=== PATIENT | male | born 1950 | race Caucasian/White ===

== ENCOUNTER 2017-03-26 21:17 | Inpatient (IN) | payer MEDICARE, OTHER ==
[~2017-03-26] VITALS: Ht 172.7 cm; Wt 51.8 kg
[2017-03-26 22:00] VITALS: BP 133/87; PULSE 115; RESP 16; TEMP 98.6; O2SAT 99
--- NOTE | 2017-03-26 22:43 | PD ---
HPI Chief Complaint: Psychiatric Symptoms Time Seen by Provider: 22:31 Travel History International Travel<30 days: No Contact w/Intl Traveler<30days: No Traveled to known affect area: No History of Present Illness HPI 66-year-old male is brought to the emergency department under [place] act for psychiatric evaluation. Per report, patient's neighbor called the police when he would not hit off of the floor. Patient states that he drinks 5 beers a day. He states he laid on the floor because he wanted to. He does not know how long he was there. He denies falling. Denies any focal deficits or weakness. Per report, patient was found in a house kept in very poor condition. He states he has not made for an entire week but states he has access to water and a bathtub in his own home. Denies suicidal homicidal ideations. Denies any psychiatric history. No other symptoms to report. PFSH Past Medical History Medical History: Denies Significant Hx Social History Alcohol Use: Yes Tobacco Use: Yes Substance Use: No Allergies-Medications (Allergen,Severity, Reaction): Coded Allergies: No Known Allergies (Unverified , 03/26/17) Reported Meds & Prescriptions Reported Meds & Active Scripts Active Active Prescriptions or Reported Medications Unobtainable Review of Systems ROS Limitations: Intoxication Except as stated in HPI: all other systems reviewed are Neg Physical Exam Exam Limitations: Intoxication Narrative GENERAL: Thin unkempt male patient, in no acute distress. SKIN: Focused skin assessment warm/dry. HEAD: Atraumatic. Normocephalic. EYES: Pupils equal and round. No scleral icterus. Scleral injection without drainage. ENT: No nasal bleeding or discharge. Mucous membranes pink and moist. NECK: Trachea midline. No JVD. CARDIOVASCULAR: Tachycardic rate and rhythm. No murmur appreciated. RESPIRATORY: No accessory muscle use. Coarse, diminished to auscultation. Breath sounds equal bilaterally. GASTROINTESTINAL: Abdomen soft, non-tender, nondistended. Hepatic and splenic margins not palpable. MUSCULOSKELETAL: No obvious deformities. No clubbing. No cyanosis. No edema. Pt has layers of dirt on his lower extremities and blackened toenails from it. NEUROLOGICAL: Awake and alert. No obvious cranial nerve deficits. Moves all extremities; clear speech Data Data Last Documented VS Vital Signs Date Time Temp Pulse Resp B/P (MAP) Pulse Ox O2 Delivery O2 Flow Rate FiO2 9/17/17 22:00 98.6 115 16 133/87 (102) 99 Orders Orders Complete Blood Count With Diff (03/26/17 22:31) Basic Metabolic Panel (Bmp) (03/26/17 22:31) Urinalysis - C+S If Indicated (03/26/17 22:31) Psych Screen (03/26/17 22:31) Drug Screen, Random Urine (03/26/17 22:31) Alcohol (Ethanol) (03/26/17 22:31) Iv Access Insert/Monitor (03/26/17 22:49) Sodium Chlor 0.9% 1000 Ml Inj (Ns 1000 M (03/26/17 23:00) Diet Regular Basic (03/27/17 Breakfast) Alcohol Withdrawal Asmt-Ciwa ONCE (03/26/17 22:49) Ondansetron Inj (Zofran Inj) (03/26/17 23:00) Albuterol Neb (Albuterol Neb) (03/26/17 23:00) Flumazenil Inj (Romazicon Inj) (03/26/17 23:00) Lorazepam (Ativan) (03/26/17 23:00) Lorazepam Inj (Ativan Inj) (03/26/17 23:00) Lorazepam (Ativan) (03/26/17 23:00) Lorazepam Inj (Ativan Inj) (03/26/17 23:00) Lorazepam Inj (Ativan Inj) (03/26/17 23:00) Lorazepam Inj (Ativan Inj) (03/26/17 23:00) Creatine Kinase (Cpk) (03/26/17 22:31) CKMB (03/26/17 22:50) CKMB% (03/26/17 22:50) Sodium Chlor 0.9% 1000 Ml Inj (Ns 1000 M (03/27/17 00:00) Labs Laboratory Tests Test 03/26/17 22:50 White Blood Count 10.4 TH/MM3 Red Blood Count 4.23 MIL/MM3 Hemoglobin 13.9 GM/DL Hematocrit 40.2 % Mean Corpuscular Volume 95.1 FL Mean Corpuscular Hemoglobin 32.9 PG Mean Corpuscular Hemoglobin Concent 34.6 % Red Cell Distribution Width 13.8 % Platelet Count 166 TH/MM3 Mean Platelet Volume 8.2 FL Neutrophils (%) (Auto) 87.0 % Lymphocytes (%) (Auto) 4.8 % Monocytes (%) (Auto) 7.8 % Eosinophils (%) (Auto) 0.0 % Basophils (%) (Auto) 0.4 % Neutrophils # (Auto) 9.1 TH/MM3 Lymphocytes # (Auto) 0.5 TH/MM3 Monocytes # (Auto) 0.8 TH/MM3 Eosinophils # (Auto) 0.0 TH/MM3 Basophils # (Auto) 0.0 TH/MM3 CBC Comment DIFF FINAL Differential Comment Blood Urea Nitrogen 4 MG/DL Creatinine 0.74 MG/DL Random Glucose 123 MG/DL Calcium Level 7.9 MG/DL Sodium Level 122 MEQ/L Potassium Level 3.6 MEQ/L Chloride Level 82 MEQ/L Carbon Dioxide Level 28.3 MEQ/L Anion Gap 12 MEQ/L Estimat Glomerular Filtration Rate 106 ML/MIN Total Creatine Kinase 864 U/L Creatine Kinase MB 11.9 NG/ML Creatine Kinase MB % 1.4 % Ethyl Alcohol Level 302 MG/DL [facility] Medical Decision Making Medical Screen Exam Complete: Yes Emergency Medical Condition: Yes Medical Record Reviewed: Yes Differential Diagnosis Mood disorder versus personality disorder versus substance abuse versus intoxication versus electrolyte abnormality versus dehydration Narrative Course 66-year-old male presents to the emergency department under a [place] act for psychiatric evaluation. Patient is clinically intoxicated. He is covered in dirt and poorly kempt. Does report daily alcohol use. Denies suicidal or homicidal ideations. Workup was initiated for medical clearance.[facility] protocol is placed. Laboratory Tests Test 03/26/17 22:50 White Blood Count 10.4 TH/MM3 Red Blood Count 4.23 MIL/MM3 Hemoglobin 13.9 GM/DL Hematocrit 40.2 % Mean Corpuscular Volume 95.1 FL Mean Corpuscular Hemoglobin 32.9 PG Mean Corpuscular Hemoglobin Concent 34.6 % Red Cell Distribution Width 13.8 % Platelet Count 166 TH/MM3 Mean Platelet Volume 8.2 FL Neutrophils (%) (Auto) 87.0 % Lymphocytes (%) (Auto) 4.8 % Monocytes (%) (Auto) 7.8 % Eosinophils (%) (Auto) 0.0 % Basophils (%) (Auto) 0.4 % Neutrophils # (Auto) 9.1 TH/MM3 Lymphocytes # (Auto) 0.5 TH/MM3 Monocytes # (Auto) 0.8 TH/MM3 Eosinophils # (Auto) 0.0 TH/MM3 Basophils # (Auto) 0.0 TH/MM3 CBC Comment DIFF FINAL Differential Comment Blood Urea Nitrogen 4 MG/DL Creatinine 0.74 MG/DL Random Glucose 123 MG/DL Calcium Level 7.9 MG/DL Sodium Level 122 MEQ/L Potassium Level 3.6 MEQ/L Chloride Level 82 MEQ/L Carbon Dioxide Level 28.3 MEQ/L Anion Gap 12 MEQ/L Estimat Glomerular Filtration Rate 106 ML/MIN Total Creatine Kinase 864 U/L Creatine Kinase MB 11.9 NG/ML Creatine Kinase MB % 1.4 % Ethyl Alcohol Level 302 MG/DL Results are reviewed and discussed with my attending physician. Call has been placed to [facility] for admission due to hyponatremia. Patient remains under a Sotelo act at this time. Diagnosis Primary Impression: Hyponatremia Additional Impression: Alcohol intoxication Qualified Codes: F10.929 - Alcohol use, unspecified with intoxication, unspecified Admitting Information Admitting Physician Requests: Admit Scripts Unable to Obtain Active Prescriptions or Reported Meds Condition: Stable Bianca Mohr Mar 26, 2017 22:43
[2017-03-26] MEDS ORDERED: ONDANSETRON HCL 4 MG/2 ML VIAL IV PUSH PRN (23:00)
[2017-03-26] MEDS ORDERED: LORazepam 1 MG TAB PO PRN (23:00)
[2017-03-26] MEDS ORDERED: SODIUM CHLOR 0.9% 1000 ML INJ 1,000 ML IV ONE (23:00)
[2017-03-26] MEDS ORDERED: LORazepam 2 MG/ML VIAL IV PUSH PRN ×2 (23:00)
[2017-03-26] MEDS ORDERED: RESP: ALBUTEROL 2.5 MG/3 ML NEB (PRN) NEB (23:00)
[2017-03-26] MEDS ORDERED: LORazepam 2 MG TAB PO PRN (23:00)
[2017-03-26] MEDS ORDERED: FLUMAZENIL 0.5 MG/5 ML VIAL IV PUSH PRN (23:00)
[2017-03-26] MEDS: LORazepam 2 MG/ML VIAL IV PUSH PRN (23:07)
[2017-03-26 23:30] LABS: AUTOMATED NEUTROPHIL # 9.1 TH/MM3 (1.8-7.7); BASOPHIL % 0.4 % (0.0-2.0); HEMATOCRIT 40.2 % (39.0-51.0); HEMO FLAGS DIFF FINAL; LYMPH % 4.8 % (9.0-44.0); LYMPHOCYTE # 0.5 TH/MM3 (1.0-4.8); MEAN CELL VOLUME 95.1 FL (80.0-100.0); MEAN CORPUSCULAR HEMOGLOBIN 32.9 PG (27.0-34.0); MEAN CORPUSCULAR HGB CONC 34.6 % (32.0-36.0); MONO % 7.8 % (0.0-8.0); PLATELET COUNT 166 TH/MM3 (150-450); RED BLOOD COUNT 4.23 MIL/MM3 (4.50-5.90); RED CELL DISTRIBUTION WIDTH 13.8 % (11.6-17.2); WHITE BLOOD COUNT 10.4 TH/MM3 (4.0-11.0)
[2017-03-26 23:44] LABS: BICARBONATE 28.3 MEQ/L (21.0-32.0); POTASSIUM 3.6 MEQ/L (3.5-5.1)
[2017-03-27] VITALS (8 sets, daily range): BP systolic 121–166; BP diastolic 73–89; PULSE 89–113; RESP 16–27; TEMP 98.1–99.3; O2SAT 93–100
[2017-03-27] MEDS ORDERED: SODIUM CHLOR 0.9% 1000 ML INJ 1,000 ML IV ONE
[2017-03-27 00:06] LABS: CKMB 11.9 NG/ML (0.5-3.6)
[2017-03-27] MEDS: LORazepam 2 MG/ML VIAL IV PUSH PRN (01:14)
[2017-03-27] MEDS ORDERED: ONDANSETRON HCL 4 MG/2 ML VIAL IVP PRN (01:15)
[2017-03-27] MEDS ORDERED: SODIUM CHLORIDE 0.9% FLUSH 10 ML FLUSH IV FLUSH PRN (01:15)
[2017-03-27] MEDS ORDERED: BISACODYL 10 MG SUPP RECTAL PRN (01:15)
[2017-03-27] MEDS ORDERED: LACTULOSE SYRUP 20 GM/30 ML CUP PO PRN (01:15)
[2017-03-27] MEDS ORDERED: SENNOSIDES 8.6 MG TAB PO PRN (01:15)
[2017-03-27] MEDS ORDERED: ACETAMINOPHEN 325 MG TAB PO PRN (01:15)
[2017-03-27] MEDS ORDERED: MAGNESIUM HYDROXIDE SUSP 30 ML CUP PO PRN (01:15)
[2017-03-27 01:26] LABS: BACTERIA, URINE RARE /hpf; BLOOD, URINE TRACE (NEG); COMMENT (UR) CULT NOT INDICATED; CULTURE IF INDICATED CULT NOT INDICATED; GLUCOSE,URINE NEG (NEG); KETONE, URINE NEG (NEG); NITRITE,URINE NEG (NEG); PH, URINE 5.5 (5.0-8.5); URINE COLOR LIGHT-YELLOW (YELLW/STRAW)
[2017-03-27] MEDS: SODIUM CHLOR 0.9% 1000 ML INJ 1,000 ML IV SCH ×3 (01:50→22:58)
--- NOTE | 2017-03-27 02:49 | HHI.HP ---
[facility] [place] No Primary Care Physician Admission Diagnosis HYPONATREMIA; INTOXICATION; ALCOHOL DEPENDENCE; Diagnoses: (1) Alcohol abuse Diagnosis: Principal (2) Hyponatremia Diagnosis: Principal (3) Rhabdomyolysis Diagnosis: Principal (4) Total self-care deficit Diagnosis: Principal (5) Tobacco abuse Diagnosis: Principal Travel History International Travel<30 Days: No Contact w/Intl Traveler <30 Da: No Traveled to Known Affected Are: No History of Present Illness This is a 66-year-old male with a PMH of Alcohol Abuse and Tobacco Abuse was brought to the ER by [place] [facility] under [employer] Act as patient unable to care for self. Per report, patient's neighbor called Police after finding him lying on the floor, refused to get up. Per PD, patient covered in urine and feces, refusing care at which time he was placed under [employer] Act. Denies suicidal ideation. On arrival, BP 133/87, HR 1:15, O2 sat 99% on RA, Afebrile. CBC essentially unremarkable. Na 122. CPK 864. UA negative. Urine Drug Screen negative. Alcohol 302. Pt to be admitted pending medical clearance for Psych. Review of Systems Except as stated in HPI: all other systems reviewed are Neg ROS: 14 point review of systems otherwise negative. Past Family Social History Past Medical History PMH: Alcohol Abuse and Tobacco Abuse Past Surgical History PAST SURGICAL HISTORY: Right Finger Surgery Allergies: Coded Allergies: No Known Allergies (Unverified , 03/26/17) Family History PAST FAMILY HISTORY: Reviewed. No h/o DM or CAD Social History PAST SOCIAL HISTORY: Positive for alcohol abuse. Positive for tobacco. Negative for drugs. Physical Exam Vital Signs Vital Signs Date Time Temp Pulse Resp B/P (MAP) Pulse Ox O2 Delivery O2 Flow Rate FiO2 03/27/17 01:14 90 18 129/89 (102) 95 Room Air 03/26/17 22:00 98.6 115 16 133/87 (102) 99 Physical Exam PE: GENERAL: Middle-aged male in no acute distress. Disheveled, acutely intoxicated HEENT: PERRLA, EOMI. No scleral icterus or conjunctival pallor. No lid lag or facial droop. CARDIOVASCULAR: Regular rate and rhythm. No obvious murmurs to auscultation. No chest tenderness to palpation. RESPIRATORY: No obvious rhonchi or wheezing. Clear to auscultation. Breath sounds equal bilaterally. GASTROINTESTINAL: Abdomen soft, non-tender, nondistended. BS normal. MUSCULOSKELETAL: Extremities without clubbing, cyanosis, or edema. No obvious deformities. NEUROLOGICAL: Awake, alert and oriented x4. No focal neurologic deficits. Moving both upper and lower extremities spontaneously. Laboratory Laboratory Tests Test 03/26/17 22:50 03/27/17 01:05 White Blood Count 10.4 Red Blood Count 4.23 Hemoglobin 13.9 Hematocrit 40.2 Mean Corpuscular Volume 95.1 Mean Corpuscular Hemoglobin 32.9 Mean Corpuscular Hemoglobin Concent 34.6 Red Cell Distribution Width 13.8 Platelet Count 166 Mean Platelet Volume 8.2 Neutrophils (%) (Auto) 87.0 Lymphocytes (%) (Auto) 4.8 Monocytes (%) (Auto) 7.8 Eosinophils (%) (Auto) 0.0 Basophils (%) (Auto) 0.4 Neutrophils # (Auto) 9.1 Lymphocytes # (Auto) 0.5 Monocytes # (Auto) 0.8 Eosinophils # (Auto) 0.0 Basophils # (Auto) 0.0 CBC Comment DIFF FINAL Differential Comment Blood Urea Nitrogen 4 Creatinine 0.74 Random Glucose 123 Calcium Level 7.9 Sodium Level 122 Potassium Level 3.6 Chloride Level 82 Carbon Dioxide Level 28.3 Anion Gap 12 Estimat Glomerular Filtration Rate 106 Total Creatine Kinase 864 Creatine Kinase MB 11.9 Creatine Kinase MB % 1.4 Ethyl Alcohol Level 302 Urine Color LIGHT-YELLOW Urine Turbidity CLEAR Urine pH 5.5 Urine Specific Reader 1.003 Urine Protein NEG Urine Glucose (UA) NEG Urine Ketones NEG Urine Occult Blood TRACE Urine Nitrite NEG Urine Bilirubin NEG Urine Urobilinogen LESS THAN 2.0 Urine Leukocyte Esterase NEG Urine RBC LESS THAN 1 Urine WBC 1 Urine Bacteria RARE Microscopic Urinalysis Comment CULT NOT INDICATED Urine Opiates Screen NEG Urine Barbiturates Screen NEG Urine Amphetamines Screen NEG Urine Benzodiazepines Screen NEG Urine Cocaine Screen NEG Urine Cannabinoids Screen NEG Result Diagram: 03/26/17224903/26/172249 Caprini VTE Risk Assessment Caprini VTE Risk Assessment: No/Low Risk (score <= 1) Caprini Risk Assessment Model Point Value = 1 Point Value = 2 Point Value = 3 Point Value = 5 Age 41-60 Minor surgery BMI > 25 kg/m2 Swollen legs Varicose veins or History of unexplained or recurrent spontaneous Oral contraceptives or hormone replacement Sepsis (< 1 month) Serious lung disease, including pneumonia (< 1 month) Abnormal pulmonary function Acute myocardial infarction Congestive heart failure (< 1 month) History of inflammatory bowel disease Medical patient at bed rest Age 61-74 Arthroscopic surgery Major open surgery (> 45 min) Laparoscopic surgery (> 45 min) Malignancy Confined to bed (> 72 hours) Immobilizing plaster cast Central venous access Age >= 75 History of VTE Family history of VTE Factor V Leiden Prothrombin [id number] Lupus anticoagulant Anticardiolipin antibodies Elevated serum homocysteine Heparin-induced thrombocytopenia Other congenital or acquired thrombophilia Stroke (< 1 month) Elective arthroplasty Hip, pelvis, or leg fracture Acute spinal cord injury (< 1 month) Prophylaxis Regimen Total Risk Factor Score Risk Level Prophylaxis Regimen 0-1 Low Early ambulation 2 Moderate Order ONE of the following: *Sequential Compression Device (SCD) *Heparin 5000 units SQ BID 3-4 Higher Order ONE of the following medications: *Heparin 5000 units SQ TID *Enoxaparin/Lovenox 40 mg SQ daily (WT < 150 kg, CrCl > 30 mL/min) *Enoxaparin/Lovenox 30 mg SQ daily (WT < 150 kg, CrCl > 10-29 mL/min) *Enoxaparin/Lovenox 30 mg SQ BID (WT < 150 kg, CrCl > 30 mL/min) AND/OR *Sequential Compression Device (SCD) 5 or more Highest Order ONE of the following medications: *Heparin 5000 units SQ TID (Preferred with Epidurals) *Enoxaparin/Lovenox 40 mg SQ daily (WT < 150 kg, CrCl > 30 mL/min) *Enoxaparin/Lovenox 30 mg SQ daily (WT < 150 kg, CrCl > 10-29 mL/min) *Enoxaparin/Lovenox 30 mg SQ BID (WT < 150 kg, CrCl > 30 mL/min) AND *Sequential Compression Device (SCD) Assessment and Plan Problem List: (1) Alcohol abuse ICD Code: F10.10 - Alcohol abuse, uncomplicated (2) Hyponatremia ICD Code: E87.1 - Hypo-osmolality and hyponatremia Status: Acute (3) Rhabdomyolysis ICD Code: M62.82 - Rhabdomyolysis (4) Total self-care deficit ICD Code: R41.89 - Other symptoms and signs involving cognitive functions and awareness (5) Tobacco abuse ICD Code: Z72.0 - Tobacco use Assessment and Plan A/P: 1. Alcohol Abuse: w/ Acute Alcohol Intoxication. Alcohol 302. CIWA, Seizure Precautions, MVT/Thiamine/Folate replacement. 2. Hyponatremia: Na 122, likely combination of chronic toxicity from alcohol abuse and acute dehydration. IVF for hydration, repeat labs in am. 3. Rhabdomyolysis: CPK 864. Check serial CPK for trend, IVF for hydration. U /a negative. 4. Total Self Care Deficit: Brought in by [place] [facility] under [place] Act as unable to care for self, refusing medical treatment. Consult Psych for further eval. 5. Tobacco Abuse: Ativan/NicoDerm prn if needed. 6. Social work for d/c planning as needed. 7. DVT Prophylaxis: SCD/Teds 8. Case discussed w/ ER physician at length. Physician Certification 2 Midnight Certification Type: Admission for Inpatient Services Order for Inpatient Services The services are ordered in accordance with Medicare regulations or non- Medicare payer requirements, as applicable. In the case of services not specified as inpatient-only, they are appropriately provided as inpatient services in accordance with the 2-midnight benchmark. Estimated LOS (days): 2 days is the estimated time the patient will need to remain in the hospital, assuming treatment plan goals are met and no additional complications. Post-Hospital Plan: Not yet determined Rachel Tejada MD Mar 27, 2017 02:49
[2017-03-27] MEDS: SODIUM CHLORIDE 0.9% FLUSH 10 ML FLUSH IV FLUSH SCH ×2 (09:00→21:00)
[2017-03-27] MEDS: MULTIVITAMINS/MINERALS THERAPEUTIC TAB PO SCH (09:29)
[2017-03-27] MEDS: DOCUSATE SODIUM 50 MG/SENNA 8.6 MG TAB PO SCH ×2 (09:29→21:00)
[2017-03-27] MEDS: THIAMINE HCL 100 MG TAB PO SCH (09:29)
[2017-03-27] MEDS: FOLIC ACID 1 MG TAB PO SCH (09:32)
[2017-03-27 11:24] LABS: CKMB 9.2 NG/ML (0.5-3.6)
--- NOTE | 2017-03-27 13:14 | HHI.PR ---
Subjective Remarks Fourth hyponatremia and alcoholism Patient is AAO 4. He has no complaint. He stated that he sleepy. Dealt with patient's nurse at the bedside she also has no complaints. Patient does admit to drinking a lot of alcohol. He would not quantify to me. Objective Vitals Vital Signs Date Time Temp Pulse Resp B/P (MAP) Pulse Ox O2 Delivery O2 Flow Rate FiO2 03/27/17 08:00 98 03/27/17 07:50 98 18 126/78 (94) 100 03/27/17 07:35 03/27/17 07:30 108 03/27/17 07:30 98.1 108 27 166/82 (110) 93 03/27/17 06:26 89 16 121/83 (96) 95 Room Air 03/27/17 01:14 90 18 129/89 (102) 95 Room Air 03/26/17 22:00 98.6 115 16 133/87 (102) 99 I/O 03/26/17 03/26/17 03/26/17 03/27/17 03/27/17 03/27/17 07:00 15:00 23:00 07:00 15:00 23:00 Intake Total 1000 ml Output Total 400 ml Balance 1000 ml -400 ml Intake IV Total 1000 ml Output Urine Total 400 ml # Voids 1 Result Diagram: 03/26/17224903/26/172249 Objective Remarks GENERAL: Disheveled man in no acute distress NECK: Supple, trachea midline. No JVD or lymphadenopathy. CARDIOVASCULAR: Regular rate and rhythm without murmurs, gallops, or rubs. RESPIRATORY: Breath sounds equal bilaterally. No accessory muscle use. GASTROINTESTINAL: Abdomen soft, non-tender, nondistended. NEURO: AAO X 3. CN 2-12 intact. Sensation and motor grossly intact. Medications and IVs Current Medications Sodium Chloride 1,000 ml @ 999 mls/hr BOLUS ONCE IV Last administered on 03/26t 23:00; Start 03/26/17 at 23:00; Stop 03/27/17 at 00:00; Status DC Ondansetron HCl (Zofran Inj) 4 mg Q8H PRN IV PUSH NAUSEA OR VOMITING; Start at 23:00 Albuterol Sulfate (Albuterol Neb) 2.5 mg Q4HR NEB PRN NEB SOB/WHEEZING; Start 03/26/17 at 23:00 Flumazenil (Romazicon Inj) 0.2 mg Q1M PRN IV PUSH SEE LABEL COMMENTS; Start at 23:00 Lorazepam (Ativan) 1 mg Q4H PRN PO CIWA 8 - 10; Start 03/26/17 at 23:00 Lorazepam (Ativan Inj) 1 mg Q4H PRN IV PUSH CIWA 8 - 10; Start 03/26/17 at 23: 00 Lorazepam (Ativan) 2 mg Q2H PRN PO CIWA 11-14; Start 03/26/17 at 23:00 Lorazepam (Ativan Inj) 2 mg Q2H PRN IV PUSH CIWA 11-14 Last administered on 01:14; Start 03/26/17 at 23:00 Lorazepam (Ativan Inj) 2 mg Q1H PRN IV PUSH CIWA 15-20; Start 03/26/17 at 23:00 Lorazepam (Ativan Inj) 2 mg Q15M PRN IV PUSH CIWA > 20; Start 03/26/17 at 23:00 Sodium Chloride 1,000 ml @ 999 mls/hr BOLUS ONCE IV Last administered on 03/27 00:31; Start 03/27/17 at 00:00; Stop 03/27/17 at 01:00; Status DC Folic Acid (Folate) 1 mg DAILY PO Last administered on 03/27/17 09:32; Start 03/27/17 at 09:00; Stop 04/01/17 at 08:59 Thiamine HCl (Vitamin B1) 100 mg DAILY PO Last administered on 03/27/17 09:29 ; Start 03/27/17 at 09:00 Multivitamins/ Minerals Therapeutic (Theragran M Tab) 1 tab DAILY PO Last administered on 03/27/17 09:29; Start 03/27/17 at 09:00; Stop 04/01/17 at 08:59 Sodium Chloride 1,000 ml @ 100 mls/hr Q10H IV Last administered on 03/27/17 01:50; Start 03/27/17 at 01:09 Sodium Chloride (NS Flush) 2 ml UNSCH PRN IV FLUSH FLUSH AFTER USING IV ACCESS ; Start 03/27/17 at 01:15 Sodium Chloride (NS Flush) 2 ml BID IV FLUSH ; Start 03/27/17 at 09:00 Ondansetron HCl (Zofran Inj) 4 mg Q6H PRN IVP NAUSEA OR VOMITING; Start at 01:15 Acetaminophen (Tylenol) 650 mg Q6H PRN PO FEVER/PAIN SCALE 1 TO 2; Start at 01:15 Senna/Docusate Sodium (Helen-Colace) 1 tab BID PO Last administered on t 09:29; Start 03/27/17 at 09:00 Magnesium Hydroxide (Milk Of Magnesia Liq) 30 ml Q12H PRN PO MILD - MODERATE CONSTIPATION; Start 03/27/17 at 01:15 Sennosides (Senokot) 17.2 mg Q12H PRN PO MODERATE - SEVERE CONSTIPATION; Start 03/27/17 at 01:15 Bisacodyl (Dulcolax Supp) 10 mg DAILY PRN RECTAL SEVERE CONSITIPATION; Start at 01:15 Lactulose (Lactulose Liq) 30 ml DAILY PRN PO SEVERE CONSITIPATION; Start at 01:15 A/P Problem List: (1) Alcohol abuse ICD Code: F10.10 - Alcohol abuse, uncomplicated (2) Hyponatremia ICD Code: E87.1 - Hypo-osmolality and hyponatremia Status: Acute (3) Rhabdomyolysis ICD Code: M62.82 - Rhabdomyolysis (4) Total self-care deficit ICD Code: R41.89 - Other symptoms and signs involving cognitive functions and awareness (5) Tobacco abuse ICD Code: Z72.0 - Tobacco use Assessment and Plan 66-year-old male who presented with alcohol intoxication Acute Alcohol Intoxication. - Alcohol 302. CIWA, Seizure Precautions, MVT/Thiamine/Folate replacement. -Back to baseline no signs of alcohol withdrawal. Hyponatremia: Na 122, -likely combination of chronic toxicity from alcohol abuse and acute dehydration. -Will need to repeat sodium level. Continue with IV fluids depending on sodium level. Rhabdomyolysis: -Most likely secondary to long sedation or trauma due to alcoholism. - CPK 864. Check serial CPK for trend, IVF for hydration. U/a negative. [place] act -Psych consulted. -Patient is alcoholic last why he does not take care of himself well. Need to treat underlying cause which is alcoholism. Tobacco Abuse: Ativan/NicoDerm prn if needed. DVT Prophylaxis: SCD/Teds Yocasta Snider MD Mar 27, 2017 13:13
--- NOTE | 2017-03-27 13:40 | PD.PSY.CON ---
Provisional Diagnosis Admission Date Mar 27, 2017 at 01:12 [place] I. Alcohol intoxication, alcohol induced mood disorder, alcohol use disorder [place] II. Deferred [place] III. He denies medical history [place] IV. Poor social and family support [place] V. 54 History of Present Illness Service Psychiatry Consult Requested By Reason for Consult Self-neglect behavior Primary Care Physician No Primary Care Physician HPI The patient is a 66-year-old man, domiciled alone in [place], single , supported by Social Security, without no previous psychiatric history, no previous suicidal attempts, no previous psychiatric hospitalizations, history of Alcohol Abuse and Tobacco Abuse, no significant medical history, who was brought to the ER by [facility] under Sotelo Act as patient unable to care for self. Per report, patient's neighbor called Police after finding him lying on the floor, refused to get up. Per PD, patient covered in urine and feces, refusing care at which time he was placed under Sotelo Act. Denies suicidal ideation. On arrival, BP 133/87, HR 1:15, O2 sat 99% on RA, Afebrile. CBC essentially unremarkable. Na 122. CPK 864. UA negative. Urine Drug Screen negative. Alcohol 302. Consulted to psychiatry for clearance. On psychiatric evaluation today patient is found calm, cooperative and pleasant. Patient explains that he doesn't really understand what is the reason he is in the hospital, he says that he should be his house. Patient says that he has been drinking 6-10 beers every day for many years and he feels happy about it. He does not remember the last time that he was sober. He denies history of withdrawal, DTs, rehabs and detoxes. Patient described his mood as very good, "could be better if I were not here", he denies depressive symptoms, he denies anxiety, he denies dann and psychosis. He denies suicidal and homicidal ideation, he denies visual and auditory hallucinations. No paranoia, no delusions, no agitation or aggressive behavior present. Patient is oriented 3 , logical, coherent and relevant. Review of Systems Constitutional: DENIES: Diaphoretic episodes, Fatigue, Fever, Weight gain, Weight loss, Chills, Dizziness, Change in appetite, Night Sweats Eyes: DENIES: Blurred vision, Diplopia, Eye inflammation, Eye pain, Vision loss , Photosensitivity, Double Vision Ears, nose, mouth, throat: DENIES: Tinnitus, Hearing loss, Vertigo, Nasal discharge, Oral lesions, Throat pain, Hoarseness, Ear Pain, Running Nose, Epistaxis, Sinus Pain, Toothache, Odynophagia Respiratory: DENIES: Apneas, Cough, Snoring, Wheezing, Hemoptysis, Sputum production, Shortness of breath Cardiovascular: DENIES: Chest pain, Palpitations, Syncope, Dyspnea on Exertion , PND, Lower Extremity Edema, Orthopnea, Claudication Gastrointestinal: DENIES: Abdominal pain, Black stools, Bloody stools, Constipation, Diarrhea, Nausea, Vomiting, Difficulty Swallowing, Anorexia Musculoskeletal: DENIES: Joint pain, Muscle aches, Stiffness, Joint Swelling, Back pain, Neck pain Integumentary: DENIES: Abnormal pigmentation, Nail changes, Pruritus, Rash Hematologic/lymphatic: DENIES: Bruising, Lymphadenopathy Immunologic/allergic: DENIES: Eczema, Urticaria Neurologic: DENIES: Abnormal gait, Headache, Localized weakness, Paresthesias, Seizures, Speech Problems, Tremor, Poor Balance Psychiatric: DENIES: Anxiety, Confusion, Mood changes, Depression, Hallucinations, Agitation, Suicidal Ideation, Homicidal Ideation, Delusions Past Family Social History Coded Allergies: No Known Allergies (Unverified , 03/26/17) Unable to Obtain Active Prescriptions or Reported Meds Current Medications Medications (Trade) Dose Ordered Sig/Caleb Route Start Time Stop Time Status Last Admin (Zofran Inj) 4 mg Q8H PRN IV PUSH 03/26/17 23:00 (Albuterol Neb) 2.5 mg Q4HR NEB PRN NEB 03/26/17 23:00 (Romazicon Inj) 0.2 mg Q1M PRN IV PUSH 03/26/17 23:00 (Ativan) 1 mg Q4H PRN PO 03/26/17 23:00 (Ativan Inj) 1 mg Q4H PRN IV PUSH 03/26/17 23:00 (Ativan) 2 mg Q2H PRN PO 03/26/17 23:00 (Ativan Inj) 2 mg Q2H PRN IV PUSH 03/26/17 23:00 03/27/17 01:14 (Ativan Inj) 2 mg Q1H PRN IV PUSH 03/26/17 23:00 (Ativan Inj) 2 mg Q15M PRN IV PUSH 03/26/17 23:00 (Folate) 1 mg DAILY PO 03/27/17 09:00 04/01/17 08:59 03/27/17 09:32 (Vitamin B1) 100 mg DAILY PO 03/27/17 09:00 03/27/17 09:29 (Theragran M Tab) 1 tab DAILY PO 03/27/17 09:00 04/01/17 08:59 03/27/17 09:29 Sodium Chloride 1,000 ml @ 100 mls/hr Q10H IV 03/27/17 01:09 03/27/17 01:50 (NS Flush) 2 ml UNSCH PRN IV FLUSH 03/27/17 01:15 (NS Flush) 2 ml BID IV FLUSH 03/27/17 09:00 (Zofran Inj) 4 mg Q6H PRN IVP 03/27/17 01:15 (Tylenol) 650 mg Q6H PRN PO 03/27/17 01:15 (Helen-Colace) 1 tab BID PO 03/27/17 09:00 03/27/17 09:29 (Milk Of Magnesia Liq) 30 ml Q12H PRN PO 03/27/17 01:15 (Senokot) 17.2 mg Q12H PRN PO 03/27/17 01:15 (Dulcolax Supp) 10 mg DAILY PRN RECTAL 03/27/17 01:15 (Lactulose Liq) 30 ml DAILY PRN PO 03/27/17 01:15 Family History Patient denies family psychiatric history Social History Patient was born and raised in [place], he lives alone in [place], his single, no kids, unemployed, supported by Social Security, highest level of education are some college credits. Patient's Strengths (min. 2) Verbal communication Physical Exam Patient is a little bit tremulous, shaky in both hands, somewhat hypoactive, psychomotor retardation noted. Vital Signs Vital Signs Date Time Temp Pulse Resp B/P (MAP) Pulse Ox O2 Delivery O2 Flow Rate FiO2 03/27/17 08:00 98 03/27/17 07:50 18 126/78 (94) 100 03/27/17 07:30 98.1 03/27/17 06:26 Room Air I/O 03/27/17 03/27/17 03/28/17 08:00 16:00 00:00 Intake Total 1000 ml Output Total 400 ml Balance 600 ml Lab Results Test 03/26/17 22:50 03/27/17 01:05 03/27/17 10:28 03/27/17 12:52 White Blood Count 10.4 TH/MM3 Red Blood Count 4.23 MIL/MM3 Hemoglobin 13.9 GM/DL Hematocrit 40.2 % Mean Corpuscular Volume 95.1 FL Mean Corpuscular Hemoglobin 32.9 PG Mean Corpuscular Hemoglobin Concent 34.6 % Red Cell Distribution Width 13.8 % Platelet Count 166 TH/MM3 Mean Platelet Volume 8.2 FL Neutrophils (%) (Auto) 87.0 % Lymphocytes (%) (Auto) 4.8 % Monocytes (%) (Auto) 7.8 % Eosinophils (%) (Auto) 0.0 % Basophils (%) (Auto) 0.4 % Neutrophils # (Auto) 9.1 TH/MM3 Lymphocytes # (Auto) 0.5 TH/MM3 Monocytes # (Auto) 0.8 TH/MM3 Eosinophils # (Auto) 0.0 TH/MM3 Basophils # (Auto) 0.0 TH/MM3 CBC Comment DIFF FINAL Differential Comment Blood Urea Nitrogen 4 MG/DL Creatinine 0.74 MG/DL Random Glucose 123 MG/DL Calcium Level 7.9 MG/DL Sodium Level 122 MEQ/L Potassium Level 3.6 MEQ/L Chloride Level 82 MEQ/L Carbon Dioxide Level 28.3 MEQ/L Anion Gap 12 MEQ/L Estimat Glomerular Filtration Rate 106 ML/MIN Total Creatine Kinase 864 U/L 954 U/L Creatine Kinase MB 11.9 NG/ML 9.2 NG/ML Creatine Kinase MB % 1.4 % 1.0 % Ethyl Alcohol Level 302 MG/DL Urine Color LIGHT-YELLOW Urine Turbidity CLEAR Urine pH 5.5 Urine Specific [place] 1.003 Urine Protein NEG mg/dL Urine Glucose (UA) NEG mg/dL Urine Ketones NEG mg/dL Urine Occult Blood TRACE Urine Nitrite NEG Urine Bilirubin NEG Urine Urobilinogen LESS THAN 2.0 MG/DL Urine Leukocyte Esterase NEG Urine RBC LESS THAN 1 /hpf Urine WBC 1 /hpf Urine Bacteria RARE /hpf Microscopic Urinalysis Comment CULT NOT INDICATED Urine Opiates Screen NEG Urine Barbiturates Screen NEG Urine Amphetamines Screen NEG Urine Benzodiazepines Screen NEG Urine Cocaine Screen NEG Urine Cannabinoids Screen NEG Mental Status Examination Appearance man, poor hygiene, disheveled, calm and cooperative Speech: Unremarkable Orientation: x3 Memory: Unremarkable Thought Process: Logical, Goal Directed, Linear Thought Content: Unremarkable Language Fluent and spontaneous Fund of Knowledge Adequate for level of education Hallucination Type: None Attention and Concentration: Good Suicidal Ideation: No Homicidal Ideation: No Previous Homicide Attempts: No Judgment: WNL Affect: Good Mood: Appropriate Motor Activity: Normal gait Assessment & Plan Problem List: (1) Alcohol abuse with alcohol-induced mood disorder ICD Codes: F10.14 - Alcohol abuse with alcohol-induced mood disorder Assessment & Plan: On psychiatric evaluation today the patient doesn't present any neuropsychiatric symptoms that requires an immediate psychiatric attention or intervention. Patient denies depressive symptoms, he denies anxiety, he denies psychosis and dann. The patient denies suicidal and homicidal ideation , he denies visual and auditory hallucinations. Paranoia, no delusions, no disorganized behavior or speech, ideas of reference or thought controlling, agitation or aggressive behavior are present. She is fully oriented 3, without any gross cognitive impairment noted. He does present mild bilateral tremor which might be consistent with early withdrawal symptoms. He does not meet criteria for psychiatric admission at this moment. Patient would benefit of detox/rehabilitation for his alcoholism. Extensive support, motivation and psychoeducation provided. Inform DCF. Order CIWA, thiamin, folate, MTVs. Sotelo act will be lifted. Assessment & Plan Estimated LOS: Issa Bear MD Mar 27, 2017 13:39
[2017-03-27 14:04] LABS: CKMB 9.2 NG/ML (0.5-3.6)
[2017-03-27 21:11] LABS: ANION GAP 8 MEQ/L (5-15); AST (GOT) 89 U/L (15-37); BICARBONATE 28.9 MEQ/L (21.0-32.0); BLOOD UREA NITROGEN 4 MG/DL (7-18); CHLORIDE 90 MEQ/L (98-107); GLOMERULAR FILTRATION RATE 137 ML/MIN (>89); MAGNESIUM 1.8 MG/DL (1.5-2.5); POTASSIUM 3.6 MEQ/L (3.5-5.1); SODIUM (NA) 127 MEQ/L (136-145)
[2017-03-27 21:13] LABS: ALT (GPT) 54 U/L (12-78)
[2017-03-27 21:14] LABS: ALKALINE PHOSPHATASE 82 U/L (45-117); TOTAL BILIRUBIN ADULT 0.9 MG/DL (0.2-1.0)
[2017-03-27] MEDS ORDERED: POTASSIUM PHOSPHATE MONOBASIC 500 MG TAB PO ONE (22:15)
[2017-03-27] MEDS ORDERED: POTASSIUM PHOSPHATE INJ 30 MMOL in SODIUM CHLOR 0.9% 250 ML INJ 250 ML IV ONE (22:15)
[2017-03-27] MEDS ORDERED: MAGNESIUM SULFATE 1 GM PREMIX 100 ML IV ONE (22:15)
[2017-03-28] VITALS (7 sets, daily range): BP systolic 127–142; BP diastolic 73–83; PULSE 77–96; RESP 14–26; TEMP 97.6–99.3; O2SAT 93–97
[2017-03-28] MEDS: SODIUM CHLORIDE 0.9% FLUSH 10 ML FLUSH IV FLUSH SCH ×2 (09:00→21:00)
[2017-03-28] MEDS: SODIUM CHLOR 0.9% 1000 ML INJ 1,000 ML IV SCH ×2 (09:00→19:25)
[2017-03-28 09:42] LABS: AUTOMATED NEUTROPHIL # 4.8 TH/MM3 (1.8-7.7); BASOPHIL # 0.1 TH/MM3 (0-0.2); BASOPHIL % 1.2 % (0.0-2.0); EOSINOPHIL % 0.1 % (0.0-4.0); HEMO FLAGS DIFF FINAL; LYMPH % 17.7 % (9.0-44.0); LYMPHOCYTE # 1.2 TH/MM3 (1.0-4.8); MEAN CELL VOLUME 95.5 FL (80.0-100.0); MEAN CORPUSCULAR HEMOGLOBIN 32.1 PG (27.0-34.0); MEAN CORPUSCULAR HGB CONC 33.6 % (32.0-36.0); PLATELET COUNT 119 TH/MM3 (150-450); RED CELL DISTRIBUTION WIDTH 13.9 % (11.6-17.2); WHITE BLOOD COUNT 6.9 TH/MM3 (4.0-11.0)
[2017-03-28 09:59] LABS: ALT (GPT) 55 U/L (12-78); AST (GOT) 91 U/L (15-37); BICARBONATE 26.8 MEQ/L (21.0-32.0); BLOOD UREA NITROGEN 5 MG/DL (7-18); GLOMERULAR FILTRATION RATE 120 ML/MIN (>89)
[2017-03-28 10:00] LABS: ALKALINE PHOSPHATASE 85 U/L (45-117); TOTAL BILIRUBIN ADULT 1.2 MG/DL (0.2-1.0)
[2017-03-28 10:16] LABS: ANION GAP 10 MEQ/L (5-15); CHLORIDE 90 MEQ/L (98-107); POTASSIUM 3.5 MEQ/L (3.5-5.1); SODIUM (NA) 127 MEQ/L (136-145)
[2017-03-28] MEDS: DOCUSATE SODIUM 50 MG/SENNA 8.6 MG TAB PO SCH ×2 (13:03→21:00)
[2017-03-28] MEDS: FOLIC ACID 1 MG TAB PO SCH (13:03)
[2017-03-28] MEDS: MULTIVITAMINS/MINERALS THERAPEUTIC TAB PO SCH (13:03)
[2017-03-28] MEDS: THIAMINE HCL 100 MG TAB PO SCH (13:03)
--- NOTE | 2017-03-28 15:44 | HHI.PR ---
Subjective Remarks Follow-up for hyponatremia Patient complains. He stated he felt better. No acute events overnight. Objective Vitals Vital Signs Date Time Temp Pulse Resp B/P (MAP) Pulse Ox O2 Delivery O2 Flow Rate FiO2 03/28/17 12:00 98.3 87 14 127/78 (94) 96 03/28/17 08:00 98.3 96 17 136/76 (96) 96 03/28/17 08:00 87 03/28/17 08:00 96 Room Air 03/28/17 04:00 99.0 77 17 136/82 (100) 95 03/28/17 00:00 99.3 78 26 141/81 (101) 93 03/27/17 20:00 99.3 96 18 140/78 (98) 94 03/27/17 19:00 Room Air 94 03/27/17 16:00 98.9 108 20 144/87 (106) 95 I/O 03/27/17 03/27/17 03/27/17 03/28/17 03/28/17 03/28/17 07:00 15:00 23:00 07:00 15:00 23:00 Intake Total 1000 ml 1085 ml 460 ml Output Total 400 ml 1300 ml 1050 ml Balance 1000 ml -400 ml -215 ml -590 ml Intake Oral 120 ml 100 ml IV Total 1000 ml 965 ml 360 ml Output Urine Total 400 ml 1300 ml 1050 ml # Voids 1 # Bowel Movements 2 Result Diagram: 03/28/17 0845 03/28/17 0845 Objective Remarks GENERAL: Disheveled man in no acute distress NECK: Supple, trachea midline. No JVD or lymphadenopathy. CARDIOVASCULAR: Regular rate and rhythm without murmurs, gallops, or rubs. RESPIRATORY: Breath sounds equal bilaterally. No accessory muscle use. GASTROINTESTINAL: Abdomen soft, non-tender, nondistended. NEURO: AAO X 3. CN 2-12 intact. Sensation and motor grossly intact. Medications and IVs Current Medications Sodium Chloride 1,000 ml @ 999 mls/hr BOLUS ONCE IV Last administered on 03/26t 23:00; Start 03/26/17 at 23:00; Stop 03/27/17 at 00:00; Status DC Ondansetron HCl (Zofran Inj) 4 mg Q8H PRN IV PUSH NAUSEA OR VOMITING; Start at 23:00 Albuterol Sulfate (Albuterol Neb) 2.5 mg Q4HR NEB PRN NEB SOB/WHEEZING; Start 03/26/17 at 23:00 Flumazenil (Romazicon Inj) 0.2 mg Q1M PRN IV PUSH SEE LABEL COMMENTS; Start at 23:00 Lorazepam (Ativan) 1 mg Q4H PRN PO CIWA 8 - 10; Start 03/26/17 at 23:00 Lorazepam (Ativan Inj) 1 mg Q4H PRN IV PUSH CIWA 8 - 10; Start 03/26/17 at 23: 00 Lorazepam (Ativan) 2 mg Q2H PRN PO CIWA 11-14; Start 03/26/17 at 23:00 Lorazepam (Ativan Inj) 2 mg Q2H PRN IV PUSH CIWA 11-14 Last administered on 01:14; Start 03/26/17 at 23:00 Lorazepam (Ativan Inj) 2 mg Q1H PRN IV PUSH CIWA 15-20; Start 03/26/17 at 23:00 Lorazepam (Ativan Inj) 2 mg Q15M PRN IV PUSH CIWA > 20; Start 03/26/17 at 23:00 Sodium Chloride 1,000 ml @ 999 mls/hr BOLUS ONCE IV Last administered on 03/27 00:31; Start 03/27/17 at 00:00; Stop 03/27/17 at 01:00; Status DC Folic Acid (Folate) 1 mg DAILY PO Last administered on 03/28/17 13:03; Start 03/27/17 at 09:00; Stop 04/01/17 at 08:59 Thiamine HCl (Vitamin B1) 100 mg DAILY PO Last administered on 03/28/17 13:03 ; Start 03/27/17 at 09:00 Multivitamins/ Minerals Therapeutic (Theragran M Tab) 1 tab DAILY PO Last administered on 03/28/17 13:03; Start 03/27/17 at 09:00; Stop 04/01/17 at 08:59 Sodium Chloride 1,000 ml @ 100 mls/hr Q10H IV Last administered on 03/28/17 09:00; Start 03/27/17 at 01:09 Sodium Chloride (NS Flush) 2 ml UNSCH PRN IV FLUSH FLUSH AFTER USING IV ACCESS ; Start 03/27/17 at 01:15 Sodium Chloride (NS Flush) 2 ml BID IV FLUSH Last administered on 03/27/17 09: 00; Start 03/27/17 at 09:00 Ondansetron HCl (Zofran Inj) 4 mg Q6H PRN IVP NAUSEA OR VOMITING; Start at 01:15 Acetaminophen (Tylenol) 650 mg Q6H PRN PO FEVER/PAIN SCALE 1 TO 2; Start at 01:15 Senna/Docusate Sodium (Helen-Colace) 1 tab BID PO Last administered on 13:03; Start 03/27/17 at 09:00 Magnesium Hydroxide (Milk Of Magnesia Liq) 30 ml Q12H PRN PO MILD - MODERATE CONSTIPATION; Start 03/27/17 at 01:15 Sennosides (Senokot) 17.2 mg Q12H PRN PO MODERATE - SEVERE CONSTIPATION Last administered on 03/28/17 13:03; Start 03/27/17 at 01:15 Bisacodyl (Dulcolax Supp) 10 mg DAILY PRN RECTAL SEVERE CONSITIPATION; Start at 01:15 Lactulose (Lactulose Liq) 30 ml DAILY PRN PO SEVERE CONSITIPATION; Start at 01:15 Potassium Phosphate (K-Phos) 1,000 mg ONCE ONCE PO Last administered on 22:58; Start 03/27/17 at 22:15; Stop 03/27/17 at 22:16; Status DC Potassium Phosphate 30 mmol/ Sodium Chloride 260 ml @ 43.333 mls/ hr ONCE ONCE IV Last administered on 03/28/17 00:09; Start 03/27/17 at 22:15; Stop at 04:14; Status DC Magnesium Sulfate/ Dextrose 100 ml @ 100 mls/hr ONCE ONCE IV Last administered on 03/27/17 22:58; Start 03/27/17 at 22:15; Stop 03/27/17 at 23:14 ; Status DC A/P Problem List: (1) Alcohol abuse ICD Code: F10.10 - Alcohol abuse, uncomplicated (2) Hyponatremia ICD Code: E87.1 - Hypo-osmolality and hyponatremia Status: Acute (3) Rhabdomyolysis ICD Code: M62.82 - Rhabdomyolysis (4) Total self-care deficit ICD Code: R41.89 - Other symptoms and signs involving cognitive functions and awareness (5) Tobacco abuse ICD Code: Z72.0 - Tobacco use Assessment and Plan 66-year-old male who presented with alcohol intoxication Acute Alcohol Intoxication. - Alcohol 302. CIWA, Seizure Precautions, MVT/Thiamine/Folate replacement. -Back to baseline no signs of alcohol withdrawal. Hyponatremia: Na 122---131---127---127 -likely combination of chronic toxicity from alcohol abuse and acute dehydration. -Continue with hydration and repeat sodium level tomorrow. Rhabdomyolysis: -Most likely secondary to long sedation or trauma due to alcoholism. - CPK 864. Check serial CPK for trend, IVF for hydration. U/a negative. Sotelo act -Psych consulted and S[place] act lifted. Does not meet psychiatrist inpatient criteria. Tobacco Abuse: Ativan/NicoDerm prn if needed. DVT Prophylaxis: SCD/TedYocasta Juares MD Mar 28, 2017 15:44
[2017-03-29] VITALS (9 sets, daily range): BP systolic 128–142; BP diastolic 67–87; PULSE 92–120; RESP 17–22; TEMP 97.5–98.2; O2SAT 94–98
[2017-03-29] MEDS: LORazepam 2 MG/ML VIAL IV PUSH PRN ×2 (01:30→04:02)
[2017-03-29] MEDS: SODIUM CHLOR 0.9% 1000 ML INJ 1,000 ML IV SCH ×3 (03:09→13:22)
[2017-03-29 05:18] LABS: HEMATOCRIT 40.2 % (39.0-51.0); MEAN CELL VOLUME 96.6 FL (80.0-100.0); MEAN CORPUSCULAR HEMOGLOBIN 32.4 PG (27.0-34.0); MEAN CORPUSCULAR HGB CONC 33.5 % (32.0-36.0); PLATELET COUNT 108 TH/MM3 (150-450); RED BLOOD COUNT 4.16 MIL/MM3 (4.50-5.90); RED CELL DISTRIBUTION WIDTH 13.8 % (11.6-17.2); REVIEW FLAG FINAL; WHITE BLOOD COUNT 6.9 TH/MM3 (4.0-11.0)
[2017-03-29 05:29] LABS: BICARBONATE 29.3 MEQ/L (21.0-32.0); POTASSIUM 3.2 MEQ/L (3.5-5.1)
[2017-03-29] MEDS ORDERED: POTASSIUM CHLORIDE 25 MEQ EFFERVESCENT TAB PO ONE ×2 (06:30→09:00)
[2017-03-29] MEDS: FOLIC ACID 1 MG TAB PO SCH (08:36)
[2017-03-29] MEDS: DOCUSATE SODIUM 50 MG/SENNA 8.6 MG TAB PO SCH ×2 (08:36→21:00)
[2017-03-29] MEDS: SODIUM CHLORIDE 0.9% FLUSH 10 ML FLUSH IV FLUSH SCH ×2 (08:36→21:00)
[2017-03-29] MEDS: MULTIVITAMINS/MINERALS THERAPEUTIC TAB PO SCH (08:36)
[2017-03-29] MEDS: THIAMINE HCL 100 MG TAB PO SCH (08:36)
[2017-03-29] MEDS ORDERED: SODIUM CHLORIDE 1 GRAM TAB PO ONE (09:00)
--- NOTE | 2017-03-29 12:08 | HHI.PR ---
Subjective Remarks Follow-up for hyponatremia Patient's complaints. When asked patient these ambulating he stated that he does not want to get out of bed. He remains afebrile. Deny any pain. Objective Vitals Vital Signs Date Time Temp Pulse Resp B/P (MAP) Pulse Ox O2 Delivery O2 Flow Rate FiO2 03/29/17 08:00 98.2 101 22 136/67 (90) 98 03/29/17 07:00 98 Room Air 03/29/17 04:00 98.0 92 17 130/81 (97) 96 03/29/17 00:00 97.8 95 17 131/82 (98) 96 03/28/17 20:00 97.6 96 15 129/73 (91) 97 03/28/17 19:00 96 Room Air 03/28/17 16:06 98.1 93 16 142/83 (102) 96 03/28/17 16:00 93 I/O 03/28/17 03/28/17 03/28/17 03/29/17 03/29/17 03/29/17 07:00 15:00 23:00 07:00 15:00 23:00 Intake Total 460 ml 2257 ml 240 ml Output Total 1050 ml Balance -590 ml 2257 ml 240 ml Intake Oral 100 ml 480 ml 240 ml IV Total 360 ml 1777 ml Output Urine Total 1050 ml # Voids 4 5 # Bowel Movements 2 5 Result Diagram: 03/29/17 03303/29/17 0333 Objective Remarks GENERAL: Disheveled man in no acute distress NECK: Supple, trachea midline. No JVD or lymphadenopathy. CARDIOVASCULAR: Regular rate and rhythm without murmurs, gallops, or rubs. RESPIRATORY: Breath sounds equal bilaterally. No accessory muscle use. GASTROINTESTINAL: Abdomen soft, non-tender, nondistended. NEURO: AAO X 3. CN 2-12 intact. Sensation and motor grossly intact. Medications and IVs Current Medications Sodium Chloride 1,000 ml @ 999 mls/hr BOLUS ONCE IV Last administered on 03/26t 23:00; Start 03/26/17 at 23:00; Stop 03/27/17 at 00:00; Status DC Ondansetron HCl (Zofran Inj) 4 mg Q8H PRN IV PUSH NAUSEA OR VOMITING; Start at 23:00 Albuterol Sulfate (Albuterol Neb) 2.5 mg Q4HR NEB PRN NEB SOB/WHEEZING; Start 03/26/17 at 23:00 Flumazenil (Romazicon Inj) 0.2 mg Q1M PRN IV PUSH SEE LABEL COMMENTS; Start at 23:00 Lorazepam (Ativan) 1 mg Q4H PRN PO CIWA 8 - 10; Start 03/26/17 at 23:00 Lorazepam (Ativan Inj) 1 mg Q4H PRN IV PUSH CIWA 8 - 10 Last administered on 01:30; Start 03/26/17 at 23:00 Lorazepam (Ativan) 2 mg Q2H PRN PO CIWA 11-14; Start 03/26/17 at 23:00 Lorazepam (Ativan Inj) 2 mg Q2H PRN IV PUSH CIWA 11-14 Last administered on 04:02; Start 03/26/17 at 23:00 Lorazepam (Ativan Inj) 2 mg Q1H PRN IV PUSH CIWA 15-20; Start 03/26/17 at 23:00 Lorazepam (Ativan Inj) 2 mg Q15M PRN IV PUSH CIWA > 20; Start 03/26/17 at 23:00 Sodium Chloride 1,000 ml @ 999 mls/hr BOLUS ONCE IV Last administered on 03/27 00:31; Start 03/27/17 at 00:00; Stop 03/27/17 at 01:00; Status DC Folic Acid (Folate) 1 mg DAILY PO Last administered on 03/29/17 08:36; Start 03/27/17 at 09:00; Stop 04/01/17 at 08:59 Thiamine HCl (Vitamin B1) 100 mg DAILY PO Last administered on 03/29/17 08:36 ; Start 03/27/17 at 09:00 Multivitamins/ Minerals Therapeutic (Theragran M Tab) 1 tab DAILY PO Last administered on 03/29/17 08:36; Start 03/27/17 at 09:00; Stop 04/01/17 at 08:59 Sodium Chloride 1,000 ml @ 100 mls/hr Q10H IV Last administered on 03/29/17 06:32; Start 03/27/17 at 01:09 Sodium Chloride (NS Flush) 2 ml UNSCH PRN IV FLUSH FLUSH AFTER USING IV ACCESS ; Start 03/27/17 at 01:15 Sodium Chloride (NS Flush) 2 ml BID IV FLUSH Last administered on 03/29/17 08: 36; Start 03/27/17 at 09:00 Ondansetron HCl (Zofran Inj) 4 mg Q6H PRN IVP NAUSEA OR VOMITING; Start at 01:15 Acetaminophen (Tylenol) 650 mg Q6H PRN PO FEVER/PAIN SCALE 1 TO 2; Start at 01:15 Senna/Docusate Sodium (Helen-Colace) 1 tab BID PO Last administered on 13:03; Start 03/27/17 at 09:00 Magnesium Hydroxide (Milk Of Magnesia Liq) 30 ml Q12H PRN PO MILD - MODERATE CONSTIPATION; Start 03/27/17 at 01:15 Sennosides (Senokot) 17.2 mg Q12H PRN PO MODERATE - SEVERE CONSTIPATION Last administered on 03/28/17 13:03; Start 03/27/17 at 01:15 Bisacodyl (Dulcolax Supp) 10 mg DAILY PRN RECTAL SEVERE CONSITIPATION; Start at 01:15 Lactulose (Lactulose Liq) 30 ml DAILY PRN PO SEVERE CONSITIPATION; Start at 01:15 Potassium Phosphate (K-Phos) 1,000 mg ONCE ONCE PO Last administered on 22:58; Start 03/27/17 at 22:15; Stop 03/27/17 at 22:16; Status DC Potassium Phosphate 30 mmol/ Sodium Chloride 260 ml @ 43.333 mls/ hr ONCE ONCE IV Last administered on 03/28/17 00:09; Start 03/27/17 at 22:15; Stop at 04:14; Status DC Magnesium Sulfate/ Dextrose 100 ml @ 100 mls/hr ONCE ONCE IV Last administered on 03/27/17 22:58; Start 03/27/17 at 22:15; Stop 03/27/17 at 23:14 ; Status DC Potassium Bicarb/ Potassium Chloride (K-Lyte Cl Eff) 50 meq ONCE ONCE PO Last administered on 9/20/17at 06:33; Start 03/29/17 at 06:30; Stop 03/29/17 at 06:31; Status DC Potassium Bicarb/ Potassium Chloride (K-Lyte Cl Eff) 50 meq ONCE ONCE PO ; Start 03/29/17 at 09:00; Stop 03/29/17 at 09:16; Status DC Sodium Chloride (Sodium Chloride) 1 gm ONCE ONCE PO ; Start 03/29/17 at 09:00; Stop 03/29/17 at 09:16; Status DC A/P Problem List: (1) Alcohol abuse ICD Code: F10.10 - Alcohol abuse, uncomplicated (2) Hyponatremia ICD Code: E87.1 - Hypo-osmolality and hyponatremia Status: Acute (3) Rhabdomyolysis ICD Code: M62.82 - Rhabdomyolysis (4) Total self-care deficit ICD Code: R41.89 - Other symptoms and signs involving cognitive functions and awareness (5) Tobacco abuse ICD Code: Z72.0 - Tobacco use Assessment and Plan 66-year-old male who presented with alcohol intoxication Acute Alcohol Intoxication. - Alcohol 302. CIWA, Seizure Precautions, MVT/Thiamine/Folate replacement. -Back to baseline no signs of alcohol withdrawal. Hyponatremia: Na 122---131---127---127--128, most likely acute on chronic -likely combination chronic alcohol abuse and acute dehydration. -Continue with hydration and repeat sodium level tomorrow. -Will as sodium tablets. Rhabdomyolysis: -Most likely secondary to long sedation or trauma due to alcoholism. - CPK 864. Check serial CPK for trend, IVF for hydration. U/a negative. Sotelo act -Psych consulted and Sotelo act lifted. Does not meet psychiatrist inpatient criteria. Tobacco Abuse: Ativan/NicoDerm prn if needed. DVT Prophylaxis: SCD/Teds Discharge Planning Will need improvement in sodium level before discharge. Yocasta Snider MD Mar 29, 2017 12:08
[2017-03-29] MEDS ORDERED: PILL SPLITTER OTHER PRN (13:15)
[2017-03-30] VITALS (8 sets, daily range): BP systolic 114–133; BP diastolic 67–87; PULSE 81–159; RESP 16–20; TEMP 97.5–98.8; O2SAT 95–98
[2017-03-30] MEDS: SODIUM CHLOR 0.9% 1000 ML INJ 1,000 ML IV SCH ×3 (03:10→18:19)
[2017-03-30] MEDS: DOCUSATE SODIUM 50 MG/SENNA 8.6 MG TAB PO SCH ×2 (09:00→21:00)
[2017-03-30] MEDS: SODIUM CHLORIDE 0.9% FLUSH 10 ML FLUSH IV FLUSH SCH ×2 (09:00→21:00)
[2017-03-30 09:11] LABS: BICARBONATE 28.5 MEQ/L (21.0-32.0)
[2017-03-30 09:12] LABS: POTASSIUM 3.2 MEQ/L (3.5-5.1)
[2017-03-30] MEDS: FOLIC ACID 1 MG TAB PO SCH (09:15)
[2017-03-30] MEDS: THIAMINE HCL 100 MG TAB PO SCH (09:15)
[2017-03-30] MEDS: SODIUM CHLORIDE 1 GRAM TAB PO SCH (09:16)
[2017-03-30] MEDS: MULTIVITAMINS/MINERALS THERAPEUTIC TAB PO SCH (09:16)
[2017-03-30] MEDS: LORazepam 2 MG/ML VIAL IV PUSH PRN (09:19)
[2017-03-30] MEDS ORDERED: POTASSIUM CHLORIDE 20 MEQ CONTROLLED RELEASE TAB PO ONE (09:45)
[2017-03-30] MEDS ORDERED: THERM PO (11:01)
[2017-03-30] MEDS ORDERED: SODI1TAB PO (11:01)
--- NOTE | 2017-03-30 11:09 | HHI.PR ---
Subjective Remarks Pt has no complaints, denies pain, SOB, nausea or vomiting states that he is "picking at my food, as it is not the more appealing food" Tells me that he lives alone Objective Vitals Vital Signs Date Time Temp Pulse Resp B/P (MAP) Pulse Ox O2 Delivery O2 Flow Rate FiO2 03/30/17 09:08 Room Air 03/30/17 09:08 81 03/30/17 08:00 97.5 159 18 130/87 (101) 95 03/30/17 03:57 97.8 101 18 114/70 (85) 98 03/29/17 23:45 97.8 107 18 133/82 (99) 98 03/29/17 20:05 97.6 113 20 131/76 (94) 94 03/29/17 20:00 Room Air 03/29/17 20:00 103 03/29/17 16:00 97.5 101 20 129/77 (94) 96 03/29/17 12:00 Room Air 03/29/17 12:00 97.5 101 20 128/67 (87) 97 I/O 03/29/17 03/29/17 03/29/17 03/30/17 03/30/17 03/30/17 07:00 15:00 23:00 07:00 15:00 23:00 Intake Total 240 ml 480 ml 1480 ml Output Total 675 ml 930 ml Balance 240 ml -195 ml 550 ml Intake Oral 240 ml 480 ml 480 ml IV Total 1000 ml Output Urine Total 675 ml 930 ml # Voids 5 # Bowel Movements 5 0 0 Result Diagram: 03/29/17 0333 03/30/17 0704 Objective Remarks GENERAL: Disheveled man in no acute distress NECK: trachea midline. CARDIOVASCULAR: Regular rate and rhythm without murmurs RESPIRATORY: Breath sounds equal bilaterally. No accessory muscle use. GASTROINTESTINAL: Abdomen soft, non-tender, nondistended. NEURO: AAO X 3. answers questions A/P Problem List: (1) Alcohol abuse ICD Code: F10.10 - Alcohol abuse, uncomplicated (2) Hyponatremia ICD Code: E87.1 - Hypo-osmolality and hyponatremia Status: Acute (3) Rhabdomyolysis ICD Code: M62.82 - Rhabdomyolysis (4) Total self-care deficit ICD Code: R41.89 - Other symptoms and signs involving cognitive functions and awareness (5) Tobacco abuse ICD Code: Z72.0 - Tobacco use Assessment and Plan 66-year-old male who presented with alcohol intoxication Acute Alcohol Intoxication. - Alcohol 302. CIWA, Seizure Precautions, MVT/Thiamine/Folate replacement. -Back to baseline no signs of alcohol withdrawal. Pt has been counseled Hyponatremia: Na 122---131---127---127--128--131 today, most likely acute on chronic -likely combination chronic alcohol abuse and acute dehydration. -Continue with po hydration. Na stable. ok to discharge pt however PT evaluated the pt and recommends home health vs rehab -continue sodium tablets. Rhabdomyolysis: -Most likely secondary to long sedation or trauma due to alcoholism. - CPK 864. s/p IVF, pt has no pain. Cr normal Sotelo act -Psych consulted and Sotelo act lifted. Does not meet psychiatrist inpatient criteria. Tobacco Abuse: Ativan/NicoDerm prn if needed. DVT Prophylaxis: SCD/Teds Discharge Planning discharge today. Discussed w CM and they will talk w pt regarding home health vs rehab. ok to d/c once arrangements made Clair Godinez MD Mar 30, 2017 10:51
--- NOTE | 2017-03-30 11:10 | HHI.DS ---
Discharge Summary Admission Date Mar 27, 2017 at 01:12 Discharge Date: Mar 30, 2017 Admitting Diagnosis HYPONATREMIA; INTOXICATION; ALCOHOL DEPENDENCE; (1) Alcohol abuse ICD Code: F10.10 - Alcohol abuse, uncomplicated (2) Hyponatremia ICD Code: E87.1 - Hypo-osmolality and hyponatremia Status: Acute (3) Rhabdomyolysis ICD Code: M62.82 - Rhabdomyolysis (4) Total self-care deficit ICD Code: R41.89 - Other symptoms and signs involving cognitive functions and awareness (5) Tobacco abuse ICD Code: Z72.0 - Tobacco use Procedures none Brief History - From Admission This is a 66-year-old male with a PMH of Alcohol Abuse and Tobacco Abuse was brought to the ER by [place] [employer] under [place] Act as patient unable to care for self. Per report, patient's neighbor called Police after finding him lying on the floor, refused to get up. Per PD, patient covered in urine and feces, refusing care at which time he was placed under [place] Act. Denies suicidal ideation. On arrival, BP 133/87, HR 1:15, O2 sat 99% on RA, Afebrile. CBC essentially unremarkable. Na 122. CPK 864. UA negative. Urine Drug Screen negative. Alcohol 302. Pt to be admitted pending medical clearance for Psych. CBC/BMP: 03/29/17 0333 03/30/17 0704 Significant Findings Laboratory Tests Test 03/27/17 12:52 03/27/17 20:30 03/28/17 08:45 03/29/17 03:33 Sodium Level 131 MEQ/L (136-145) 127 MEQ/L (136-145) 127 MEQ/L (136-145) 128 MEQ/L (136-145) Total Creatine Kinase 993 U/L (39-308) Creatine Kinase MB 9.2 NG/ML (0.5-3.6) Blood Urea Nitrogen 4 MG/DL (7-18) 5 MG/DL (7-18) 3 MG/DL (7-18) Creatinine 0.59 MG/DL (0.60-1.30) 0.50 MG/DL (0.60-1.30) Albumin 3.1 GM/DL (3.4-5.0) 3.1 GM/DL (3.4-5.0) Calcium Level 7.6 MG/DL (8.5-10.1) 7.9 MG/DL (8.5-10.1) 8.1 MG/DL (8.5-10.1) Phosphorus Level 1.8 MG/DL (2.5-4.9) Aspartate Amino Transf (AST/SGOT) 89 U/L (15-37) 91 U/L (15-37) Chloride Level 90 MEQ/L (98-107) 90 MEQ/L (98-107) 91 MEQ/L (98-107) Red Blood Count 4.40 MIL/MM3 (4.50-5.90) 4.16 MIL/MM3 (4.50-5.90) Platelet Count 119 TH/MM3 (150-450) 108 TH/MM3 (150-450) Monocytes (%) (Auto) 12.0 % (0.0-8.0) Random Glucose 70 MG/DL (74-106) Total Bilirubin 1.2 MG/DL (0.2-1.0) Potassium Level 3.2 MEQ/L (3.5-5.1) Test 03/30/17 07:04 Blood Urea Nitrogen 1 MG/DL (7-18) Creatinine 0.54 MG/DL (0.60-1.30) Calcium Level 8.2 MG/DL (8.5-10.1) Sodium Level 131 MEQ/L (136-145) Potassium Level 3.2 MEQ/L (3.5-5.1) Chloride Level 94 MEQ/L (98-107) PE at Discharge GENERAL: Disheveled man in no acute distress NECK: trachea midline. CARDIOVASCULAR: Regular rate and rhythm without murmurs RESPIRATORY: Breath sounds equal bilaterally. No accessory muscle use. GASTROINTESTINAL: Abdomen soft, non-tender, nondistended. NEURO: AAO X 3. answers questions Hospital Course Acute Alcohol Intoxication. - Alcohol 302. CIWA, Seizure Precautions, MVT/Thiamine/Folate replacement. -Back to baseline no signs of alcohol withdrawal. Pt has been counseled Hyponatremia: Na 122---131---127---127--128--131 today, most likely acute on chronic -likely combination chronic alcohol abuse and acute dehydration. -s/p hydration. Na stable. ok to discharge pt -continue sodium tablets. Rhabdomyolysis: -Most likely secondary to long sedation or trauma due to alcoholism. - CPK 864. s/p IVF, pt has no pain. Cr normal Sotelo act -Psych consulted and Sotelo act lifted. Does not meet psychiatrist inpatient criteria. Pt Condition on Discharge: Stable Discharge Disposition: Discharge to SNF Discharge Time: > 30 minutes Discharge Instructions DIET: Follow Instructions for: As Tolerated, No Restrictions Activities you can perform: Regular-No Restrictions Follow up Referrals: PCP Follow-up - 1 Week New Medications: Multiple Vitamins W/ Minerals (Thera M Plus) 1 Tab 1 TAB PO DAILY, #30 TAB Sodium Chloride (Sodium Chloride) 1 Gram Tab 0.5 GM PO DAILY, #30 TAB Clair Godinez MD Mar 30, 2017 11:03
--- NOTE | 2017-03-30 11:53 | HHI.PR ---
Addendum to Inpatient Note Addendum Reason: Additional Documentation Additional Information will hold discharge as pt's HR in the 120's. Reviewed TELE and it does appear in sinus rhythm however will check EKG. Monitor pt, he did require one dose of ativan earlier this morning. Hopefully pt can be discharged to SNF in AM. Clair Godinez MD Mar 30, 2017 11:53
[2017-03-31] MEDS: SODIUM CHLOR 0.9% 1000 ML INJ 1,000 ML IV SCH (03:58)
[2017-03-31 04:33] VITALS: BP 122/67; PULSE 95; RESP 18; TEMP 98.3; O2SAT 98
[2017-03-31 08:00] VITALS: BP 133/74; PULSE 119; PULSE 80; RESP 16; TEMP 97.6; O2SAT 99
[2017-03-31] MEDS ORDERED: GNP100TA3 PO (09:00)
[2017-03-31] MEDS: MULTIVITAMINS/MINERALS THERAPEUTIC TAB PO SCH (09:39)
[2017-03-31] MEDS: SODIUM CHLORIDE 1 GRAM TAB PO SCH (09:39)
[2017-03-31] MEDS: THIAMINE HCL 100 MG TAB PO SCH (09:39)
[2017-03-31] MEDS: FOLIC ACID 1 MG TAB PO SCH (09:39)
[2017-03-31] MEDS: DOCUSATE SODIUM 50 MG/SENNA 8.6 MG TAB PO SCH (09:39)
[2017-03-31] MEDS: SODIUM CHLORIDE 0.9% FLUSH 10 ML FLUSH IV FLUSH SCH (09:41)
[2017-03-31 10:11] LABS: BASOPHIL % 0.7 % (0.0-2.0); EOSINOPHIL # 0.1 TH/MM3 (0-0.4); EOSINOPHIL % 1.6 % (0.0-4.0); HEMATOCRIT 38.7 % (39.0-51.0); HEMO FLAGS DIFF FINAL; LYMPH % 23.8 % (9.0-44.0); LYMPHOCYTE # 1.6 TH/MM3 (1.0-4.8); MEAN CELL VOLUME 95.8 FL (80.0-100.0); MEAN CORPUSCULAR HEMOGLOBIN 31.3 PG (27.0-34.0); MEAN CORPUSCULAR HGB CONC 32.7 % (32.0-36.0); MONO % 13.6 % (0.0-8.0); NEUT % 60.3 % (16.0-70.0); PLATELET COUNT 152 TH/MM3 (150-450); RED BLOOD COUNT 4.04 MIL/MM3 (4.50-5.90); RED CELL DISTRIBUTION WIDTH 13.6 % (11.6-17.2); WHITE BLOOD COUNT 6.6 TH/MM3 (4.0-11.0)
[2017-03-31 10:34] LABS: BICARBONATE 31.1 MEQ/L (21.0-32.0); MAGNESIUM 1.9 MG/DL (1.5-2.5); POTASSIUM 3.8 MEQ/L (3.5-5.1)
--- NOTE | 2017-03-31 13:11 | HHI.PR ---
Addendum to Inpatient Note Additional Information pt was discharged before seen by Dalton Reyes MD Mar 31, 2017 13:11
--- NOTE | 2017-03-31 16:47 | EKG ---
Date Performed: 03/30/2017 Time Performed: 16:54:19 PTAGE: 66 years EKG: Sinus rhythm WITH OCCASIONAL VENTRICULAR PREMATURE COMPLEXES BORDERLINE RIGHT AXIS DEVIATION LOW QRS VOLTAGE IN P RECORDIAL LEADS INCOMPLETE RIGHT BUNDLE BRANCH BLOCK BORDERLINE ECG ARTIFACT NO PREVIOUS TRACING DOCTOR: Selam Valero Interpretating Date/Time 03/31/2017 16:46:51
== END 2017-03-31 11:39 | DRG 641 ==
LOC: NEPD 21:17 → NEDA 03-27 01:12 → N03A 03-27 07:42 → N04B 03-29 10:12
PROVIDERS: ADMIT Internal Medicine; ATTEND Internal Medicine
DX: E87.1 Hypo-osmolality and hyponatremia (principal); E86.0 Dehydration; M62.82 Rhabdomyolysis; F10.24 Alcohol dependence with alcohol-induced mood disorder; Y90.8 Blood alcohol level of 240 mg/100 ml or more; F17.210 Nicotine dependence, cigarettes, uncomplicated; F10.220 Alcohol dependence with intoxication, uncomplicated
CPT/HCPCS: 76937; 80048; 80053; 80307; 81001; 82550; 82552; 83735; 84100; 84295; 84443; 85025; 85027; 93005; 96361; 96374; J2060; J3475; J7030; J7050